=== PATIENT | female | born 1965 | race Caucasian/White ===

== ENCOUNTER 2021-08-15 09:26 | Outpatient (CLI) | payer BC, SELFPAY ==
--- NOTE | 2021-08-15 09:30 | BI_ITS ---
MAMMOGRAPHY - UNILATERAL DIAGNOSTIC: RIGHT BREAST REASON FOR EXAM: Female, 56 years old. Abnormal screening mammogram. PERTINENT HISTORY: Non-contributory. TECHNIQUE: 90 degree lateral and compression spot views of the right breast were obtained. CAD: Full Field Digital Mammography with Computer Added Detection was performed. COMPARISON: Comparison is made with prior examination is 07/13/2020 and 08/10/2021. FINDINGS: Breast Composition: The breasts are heterogeneously dense, which may obscure small masses. There are no dominant masses or suspicious calcifications. The focal area of architectural distortion represents superimposition of tissue. Correlation with ultrasound is recommended. No other significant abnormalities are identified. BI/DIAG MAMM W/CAD, UNILAT IMPRESSION: Stable unilateral diagnostic mammogram. Correlation with ultrasound is recommended. ASSESSMENT CATEGORY: BIRADS Category 0: Incomplete. Need additional imaging evaluation. A letter regarding these results will be sent to the patient by the facility within 30 days. Approximately 10% of breast cancers are not detected by mammography. A normal mammogram should not delay biopsy of a clinically suspicious abnormality. Electronically Signed: Connor Ramirez MD at 10:30 EDT ,
--- NOTE | 2021-08-15 09:30 | US_ITS ---
STUDY: ULTRASOUND BREAST - RIGHT REASON FOR EXAM: Female, 56 years old. Abnormal screening mammogram. TECHNIQUE: Axial and longitudinal images of the RIGHT breast were performed with a high resolution ultrasound transducer. # OF IMAGES: 25 COMPARISON: Comparison is made with prior mammogram done earlier in the day as well as prior outside mammogram dated 08/10/2021. FINDINGS: RIGHT Breast: The lateral aspect of the right breast was examined by ultrasound. No sonographic abnormality is seen. US/Breast Limited Unilateral IMPRESSION: No sonographic abnormality is seen. ASSESSMENT CATEGORY: BIRADS Category 2: Benign. A letter regarding these results will be sent to the patient by the facility within 30 days. Electronically Signed: Connor Ramirez MD at 10:27 EDT ,
== END 2021-08-15 23:59 | disposition home or self-care (01) ==
LOC: OPBI 09:27
PROVIDERS: PCP Family Medicine; Referring Provider Obstetrics & Gynecology; Visit Provider Obstetrics & Gynecology
DX: R92.2 Inconclusive mammogram (principal)
CPT/HCPCS: 76642; 77061; 77065; G0279

== ENCOUNTER → 2022-03-05 | Outpatient (CLI) | payer BC, SELFPAY ==
--- NOTE | 2022-03-05 10:37 | STE_ITS ---
Reason For Study: CHEST PAIN Stress Results Protocol: Jamar Protocol Maximum Predicted HR: 161 bpm Target HR: 137 bpm % Maximum Predicted HR: 106 % DurationHeart Rate Stage (mm:ss) (bpm) BP BASELINE 84 118/62 STAGE 1 3:00 126 142/82 STAGE 2 3:00 151 138/72 STAGE 3 3:00 171 160/72 RECOVERY 100 118/78 Stress Duration: 9:00 mm:ss Maximum Stress HR: 171 bpm Baseline Echocardiogram Findings Stress Echo Wall motion Data Resting WM Intermediate WM Stress WM ECHO/Stress Test Echo w/o Contrast Interpretation Summary Exercise stress echo. 57-year-old lady with a history of chest pain. Stress EKG. Resting EKG demonstrates normal sinus rhythm with a rate of 78 bpm normal inter vals are noted resting blood pressure is 118/62 mmHg. The patient exercised according to regul or Jamar protocol for total duration of 9 minutes the maximum heart rate attained was 176 bpm which w as 109% of max impacted heart rate the maximum workload was 10.4 metabolic equivalents. At res t there were no ST or T wave changes noted suggest ischemia at peak exercise upsloping ST changes of approximately 2 mm were noted with no meet criteria for ischemia. No clinical angina was noted the test was terminated due to target heart rate being achieved no chest pain was noted. The peak blood pressure was 160/72 mmHg. Stress echocardiogram. Resting echocardiogram demonstrated preserved ejection fraction of 55%. No wall motion abnormalities were noted at rest. There was mild mitral valve prolapse noted. The patient exe rcised according to the Jamar protocol and at peak exercise the ejection fraction improved to 70%. No wall motion abnormalities were noted there was thickening of all garcia noted. Conclusion: Exercise stress echocardiogram with no EKG or echocardiographic criteria for is chemia at a high workload. Excellent functional capacity. Good blood pressure response to exercise. Ordering Physician: Marky Burleson Referring Physician: Marky Burleson Performed By: Desi Tello, RDCS, RVT
== END | disposition home or self-care (01) ==
LOC: CVS 10:35
PROVIDERS: PCP Family Medicine; Referring Provider Internal Medicine Cardiovascular Disease; Visit Provider Internal Medicine Cardiovascular Disease
DX: R07.9 Chest pain, unspecified (principal)
CPT/HCPCS: 93017; 93350